=== PATIENT | male | born 1950 | race Two or more races ===

== ENCOUNTER 2021-12-06 04:37 | Emergency (ER) | payer OTHER ==
[~2021-12-06] VITALS: Ht 177.8 cm; Wt 72.6 kg
[2021-12-06] MEDS ORDERED: KETOROLAC TROMETH 60MG/2ML VIAL IM ONE (07:30)
[2021-12-06] MEDS ORDERED: KETOROLAC TROMETH 60MG/2ML VIAL ONE (07:37)
[2021-12-06] MEDS ORDERED: CYCL-837 PO (07:47)
[2021-12-06] MEDS ORDERED: ACET-1158 PO (07:47)
[2021-12-06 08:00] VITALS: BP 148/84
== END 2021-12-06 11:02 | disposition home or self-care (01) ==
LOC: ER 04:37
DX: S39.012A Strain of muscle, fascia and tendon of lower back, initial encounter (principal); I10 Essential (primary) hypertension; F12.10 Cannabis abuse, uncomplicated; X58.XXXA Exposure to other specified factors, initial encounter; Y93.89 Activity, other specified; Y92.89 Other specified places as the place of occurrence of the external cause; Y99.8 Other external cause status
CPT/HCPCS: 72100; 93005; 96372; 99283; J1885

== ENCOUNTER 2023-11-13 07:33 | Emergency (ER) | payer OTHER ==
[~2023-11-13] VITALS: Ht 170.2 cm; Wt 68.0 kg
[~2023-11-13 07:33] MED LIST: ACET500T58 PO; CYCL-837 PO
[2023-11-13 08:58] LABS: Hematocrit 30.1 % (41.0-53.0); Hemoglobin 10.4 g/dL (13.5-17.5); Mean Corpuscular Hgb Conc. 34.4 g/dL (32.0-36.0); Mean Corpuscular Volume 93.1 fL (80.0-100.0); Red Blood Cells 3.24 10^6/uL (4.5-5.90); Red Cell Distribution Width 16.1 % (11.8-14.3); White Blood Cell 9.9 10^3/uL (4.4-10.8)
[2023-11-13 08:59] LABS: Basophils % (manual) 0 (0.0-2.0); Blast Cells 0; Metamyelocytes % 0; Myelocytes % 0; Promyelocytes % 0; Reactive Lymphocytes 0
[2023-11-13] MEDS: FLEET ENEMA(ADULT) 135 ML PR ONE (10:37)
[2023-11-13 10:40] LABS: Band Neutrophils % (manual) 3; Eosinophils % (manual) 1 (0-7); Lymphocytes % (manual) 39 (10.0-50.0); Monocytes % (manual) 1 (0-12); Platelet Estimate Adequate
[2023-11-13 10:55] LABS: Alkaline Phosphatase 109 U/L (46-116)
[2023-11-13 10:56] LABS: Alanine Aminotransferase 28 U/L (7-40); Albumin 3.7 g/dL (3.2-4.8); Anion Gap 5 (5-15); Aspartate Aminotransferase 20 U/L (13-40); BUN/Creatinine Ratio 21.4 (10.0-20.0); Blood Urea Nitrogen 15 mg/dL (9-23); Calcium 8.8 mg/dL (8.7-10.4); Carbon Dioxide 29 mmol/L (20-30); Chloride 103 mmol/L (98-107); Glucose 102 mg/dL (74-106); Lipase 30 U/L (12-53); Potassium 3.7 mmol/L (3.5-5.1); Sodium 137 mmol/L (136-145); Total Protein 5.4 g/dL (5.7-8.2)
[2023-11-13 11:00] VITALS: BP 135/68; PULSE 67; RESP 20; TEMP 97.9; O2SAT 97
[2023-11-13] MEDS ORDERED: FLEETMIN PR (11:53)
== END 2023-11-13 12:28 | disposition home or self-care (01) ==
LOC: EDBD 07:33 → ER 07:33 → EDUNIT# 07:33 → ER 12:26
DX: K59.00 Constipation, unspecified (principal); E86.0 Dehydration; I10 Essential (primary) hypertension; Z85.72 Personal history of non-Hodgkin lymphomas
CPT/HCPCS: 36415; 71045; 74176; 80053; 83690; 84484; 85007; 85027

== ENCOUNTER 2024-02-27 12:26 | Emergency (ER) | payer OTHER ==
[~2024-02-27] VITALS: Ht 177.8 cm; Wt 67.5 kg
[~2024-02-27 12:26] MED LIST changes: +FLEETMIN PR; +MAGN400T40 PO; +MINE1ENE PR; +SENN1CAP4 PO
[2024-02-27 13:42] VITALS: BP 155/94; PULSE 83; RESP 16; TEMP 98.7; O2SAT 100
[2024-02-27] MEDS ORDERED: PRED20TA2 PO (13:43)
[2024-02-27] MEDS ORDERED: TRAM-626 PO (13:43)
[2024-02-27] MEDS: KETOROLAC TROMETH 60MG/2ML VIAL IM ONE (13:52)
== END 2024-02-27 13:58 | disposition home or self-care (01) ==
LOC: ER 12:28
DX: M50.10 Cervical disc disorder with radiculopathy, unspecified cervical region (principal); F12.10 Cannabis abuse, uncomplicated; Z85.9 Personal history of malignant neoplasm, unspecified; I10 Essential (primary) hypertension; Z90.89 Acquired absence of other organs; Z90.49 Acquired absence of other specified parts of digestive tract; Z79.899 Other long term (current) drug therapy
CPT/HCPCS: 72040; 96372; 99283; J1885

== ENCOUNTER 2024-02-28 12:37 | Emergency (ER) | payer OTHER ==
[~2024-02-28] VITALS: Ht 172.7 cm; Wt 70.4 kg
[~2024-02-28 12:37] MED LIST changes: +PRED20TA2 PO; +TRAM-626 PO
[2024-02-28 13:04] VITALS: TEMP 97.6; O2SAT 100
[2024-02-28] MEDS: ONDANSETRON ODT 4 MG TAB PO ONE (13:29)
[2024-02-28] MEDS: MEPERIDINE HCL (50 MG/ML) 1 ML VIAL IM ONE (13:30)
[2024-02-28 14:34] VITALS: BP 151/90; PULSE 75; RESP 18
== END 2024-02-28 15:15 | disposition home or self-care (01) ==
LOC: EDBD 12:37 → ER 12:37
DX: M50.10 Cervical disc disorder with radiculopathy, unspecified cervical region (principal); M19.011 Primary osteoarthritis, right shoulder; I10 Essential (primary) hypertension; F12.10 Cannabis abuse, uncomplicated; Z90.49 Acquired absence of other specified parts of digestive tract; Z85.9 Personal history of malignant neoplasm, unspecified; Z90.89 Acquired absence of other organs; Z79.899 Other long term (current) drug therapy
CPT/HCPCS: 73030; 96372; 99283; J2175; Q0162